=== PATIENT | male | born 1985 | race Caucasian/White ===

== ENCOUNTER 2021-07-21 09:55 | Emergency (ER) | payer OTHER ==
[2021-07-21 11:11] LABS: HEMOGLOBIN 14.3 gm/dl (14.0-17.5); RED BLOOD COUNT 4.8 M/UL (4.20-5.50)
[2021-07-21 11:41] LABS: BUN/CREATININE RATIO 20 (0-10)
[2021-07-21] MEDS ORDERED: CYCLOBENZAPRINE10 MG PO (14:10)
[2021-07-21] MEDS ORDERED: IBUPROFEN600 MG PO (14:10)
[2021-07-21] MEDS ORDERED: OMNICEF 300 MG300 MG PO (14:10)
== END 2021-07-21 14:27 | disposition home or self-care (01) ==
LOC: ER1 09:55
PROVIDERS: Emergency Medicine
DX: M54.2 Cervicalgia (principal); F17.200 Nicotine dependence, unspecified, uncomplicated; F19.11 Other psychoactive substance abuse, in remission
CPT/HCPCS: 80053; 85025; 85652; 86140; 99284; J7030; Q9967